=== PATIENT | male | born 1970 | race Caucasian/White ===

== ENCOUNTER → 2024-12-28 07:37 | Outpatient (REF) | payer OTHER, SELFPAY ==
--- NOTE | 2024-12-28 07:43 | ECG_ITS ---
Test Reason : check qt Blood Pressure : */* mmHG Vent. Rate : 79 BPM Atrial Rate : 79 BPM P-R Int : 168 ms QRS Dur : 94 ms QT Int : 380 ms P-R-T Axes : 46 46 62 degrees QTcB Int : 435 ms Normal sinus rhythm Normal ECG No previous ECGs available Referred By: Tara Ramirez Electronically Signed By: SHALONDA PALOMINO
[2024-12-28 07:57] LABS: MANUAL DIFF FLAG NO
[2024-12-28 08:24] LABS: Hematocrit 46.3 % (42.0-52.0); Hemoglobin 15.0 g/dl (14.0-18.0); Imm Gran Abs Auto 0.01 X10*3/uL (0.00-0.03); Imm Gran Pct Auto 0.2 % (0.0-0.4); Lymphocytes Absolute Auto 1.2 X10*3/uL (1.2-4.9); Mean Corpuscular HGB Conc 32.4 g/dl (31.0-36.0); Mean Corpuscular Hemoglobin 28.8 pg (27.0-33.0); Mean Corpuscular Volume 88.9 fL (80.0-98.0); NRBC Abs Auto 0.000 X10*3/uL (0.0-0.012); NRBC Pct Auto 0.0 /100WBC (0.0-0.2); Platelet Count 282 X10*3/uL (160-400); Red Blood Count 5.21 X10*6/uL (4.60-5.80); White Blood Count 5.6 X10*3/uL (4.8-10.8)
[2024-12-28 08:26] LABS: Hemoglobin A1C 151.3397 umol/L; Total Hemoglobin (HGBA1C) 4070.7835 umol/L
[2024-12-28 08:43] LABS: Alanine Aminotransferase 34 U/L (0-40); Albumin Level 4.6 g/dL (3.5-5.0); Alkaline Phosphatase 69 U/L (39-117); Anion Gap 14 (12-20); Aspartate Amino Transferase 27 U/L (5-37); Blood Urea Nitrogen 15 mg/dL (9-16); Calcium 9.7 mg/dL (8.4-10.2); Carbon Dioxide 29 mmol/L (22-29); Chloride 103 mmol/L (96-108); Cholesterol 245 mg/dL (<200); Estimated Glomerular Filt Rate > 60; HDL Cholesterol 66 mg/dL (>40); Iron 88 mcg/dL (45-160); Magnesium 2.4 mg/dL (1.6-2.6); Percent Iron Saturation 30 % (15-50); Potassium 4.7 mmol/L (3.3-5.1); Sodium 141 mmol/L (135-145); Total Iron Binding Capacity 291 mcg/dL (228-428); Total Protein 7.1 g/dL (6.5-8.0); Triglycerides 122 mg/dL (<150); Unsaturated Iron Binding 203 ug/dL
[2024-12-28 09:00] LABS: Free T4 (Free Thyroxine) 0.91 ng/dL (0.71-1.85); Thyroid Stimulating Hormone 1.92 uIU/mL (0.32-4.0)
[2024-12-28 09:22] LABS: Folate 11.4 ng/mL (> or = 4.0); Vitamin B12 409 pg/mL (200-900)
== END ==
LOC: HO.CARD 07:37
PROVIDERS: PCP Internal Medicine; Visit Provider Psychiatry & Neurology Psychiatry
DX: F41.1 Generalized anxiety disorder (principal); F33.2 Major depressive disorder, recurrent severe without psychotic features
CPT/HCPCS: 36415; 80053; 80061; 82550; 82607; 82746; 83036; 83090; 83540; 83735; 84100; 84425; 84439; 84443; 85025; 85652; 93005

== ENCOUNTER → 2024-12-28 07:43 | Outpatient (BNV) | payer OTHER, SELFPAY | PROVIDERS: PCP Internal Medicine; Visit Provider Internal Medicine | DX: Z13.6 Encounter for screening for cardiovascular disorders (principal) | CPT/HCPCS: 93010 ==

== ENCOUNTER 2025-01-07 10:30 | Outpatient (RCR) | payer OTHER, SELFPAY ==
[2024-12-25 09:40] VITALS: BP 100/63; PULSE 84; TEMP 36.3; BMI 35.0
--- NOTE | 2024-12-25 10:14 | PC.ADMIT ---
Patient is a 54 year old male who was referred to [facility] by his psychiatrist Dr. Emilia Mondragon secondary to increased sxs of depression and anxiety in relation to work stresses. Patient reports he was put into a new position at work and believes he is not control of the situation or have the answers others are looking for. Patient is currently taking a ANDREE from work d/t mental health sxs. He wants to be able to learn to handle stress better. Patient reports he was on Escitalopram for years and this stopped working thus was tapered off this and put on Duloxetine. Patient reports he was also prescribed Propranolol however he was feeling lightheaded and chest pressure when on the medication thus was discontinued. Patient is alert and oriented x4. He is calm and cooperative. He presentd with depressed mood and anxious affect. He denied SI, no HI. He was given a copy of his safety plan if needed. Medication updated with patient and patient's pharmacy. He reports he is taking medications as prescribed. Patient reports he lost 30 lbs with in the past 2.5 months d/t stress and depression sxs. Patient reports having panic attacks and night and daytime sweating. Patient denied any issues with substance use.
--- NOTE | 2024-12-25 23:48 | HO.PS.ADMBH ---
HPI Date of Service: 12/25/24 Chief Complaint: anxiety,depression Sources of Information: patient interviewed, chart reviewed and crisis/core team assessment reviewed HPI Narrative: Patient is a 54 yo male with history of generalized anxiety, depression, who was referred by his outpatient psychiatrist for struggles with worsening anxiety, panic attacks and physical symptoms of anxiety, leading to impairments in focus and cognitive functioning which are negatively impacting his ability to function at his job. 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 Since a job promotion in the earlier part of the year, he has been struggling with his new role, particularly the social/interpersonal demands of the job: he has to coordinate and lead a team, I'm expected to have the answers . He complains of experiencing increased levels of anxiety, irritability, frequent panic attacks especially at night I lost my ability to focus... my memory has been compromised . He has also started to suffer pressure headaches from being under constant stress as well as stress-related dreams. Aside from the stressors of work, he is also experiencing overthinking, and more recently finds his mind goes blank when trying to do mental tasks . Catastrophizing about the future, worrying about lsoing his job and being unable to support his family. He denies any suicidal ideation or thoughts of giving up on life, but is feeling hopeless about his situation at work and is not feeling confident he will be able to regain his cognitive abilities and composure. Past Psychiatric History: No prior IPLOC, PHP, respite, detox/rehab admissions SA: denies SIB: denies Aggression or antisocial behaviors: denies Denies legal history Pertinent developmental hx: none Previous diagnoses: BHAVESH, Depression Psychiatrist: Emilia Almanzar MD x 2 months Therapist: PCP: Previous trials: Lexapro (x 20 yrs, has been off x 1 week), trazodone CURRENT MEDICATIONS: duloxetine 60 mg qd (started about 2-3 weeks ago) buspirone 30 mg BID (x7 yrs) lorazepam 0.5 mg TID prn anxiety trazodone 50 mg qhs famotidine 20 mg BID [facility] Medical History (Updated 12/26/24 @ 09:55 by Tara Ramirez MD) GERD (gastroesophageal reflux disease) Narrative: Overall healthy No chronic health conditions No h/o medical hospitalization for illness or injury Surgeries: denies Seizures: denies Concussions/TBI: denies Ht: Wt: ALL: Diagnostics Vital Signs (24Hr): Vital Signs - 24 hr 12/25/24 09:40 Temperature 97.4 F Pulse Rate 84 Blood Pressure 100/63 BMI result Body Mass Index 35.0 Meds/Allergies Meds Home Medications ?Medication ?Instructions ?Recorded ?Confirmed ?Type buspirone 30 mg tablet 30 mg PO BID 12/25/24 12/25/24 History duloxetine 30 mg capsule,delayed 60 mg PO DAILY 12/25/24 12/25/24 History release famotidine 20 mg tablet 20 mg PO BID 12/25/24 12/25/24 History lorazepam 0.5 mg tablet 0.5 mg PO TID PRN anxiety 12/25/24 12/25/24 History trazodone 50 mg tablet 50 - 150 mg PO BEDTIME PRN insomnia 12/25/24 12/25/24 History Allergies Allergies Allergy/AdvReac Type Severity Reaction Status Date / Time propranolol AdvReac Lightheaded, Verified 12/25/24 10:14 chest pressure. Mental Status Exam Mental Status Exam Narrative: Alert, oriented, in no acute distress. Calm, cooperative, engaged. No psychomotor agitation or neurovegetative retardation. Eye contact maintained. Mood anxious, affect variable, mood congruent. Speech normal. Thought process linear, coherent. Thought content related to stressors, denies any hopelessness or SI. Denies any aggressive ideation or HI. No paranoia or delusional content elicited. No evidence of psychosis. Insight and judgment - fair but adequate. Assessment & Plan Assessment & Plan (1) MDD (major depressive disorder), recurrent severe, without psychosis: Status: Acute Code(s): F33.2 - Major depressive disorder, recurrent severe without psychotic features (2) BHAVESH (generalized anxiety disorder): Status: Acute Code(s): F41.1 - Generalized anxiety disorder Plan Admit to [facility] VS reviewed: afebrile, BP 100/63;?84 bpm continue regular medications for now will order Vyvanse to see if covered by insurance we are also considering starting guanfacine ER Routine lab work as indicated EKG, routine for baseline QTc for medication considerations as indicated UDS as indicated MassPat reviewed Continue to monitor as per protocol Patient educated on: diagnosis and medication risk/benefits Informed Consent: understands Reason for continued partial hosp. stay Substantial Risk for: inability to function and med/psych decompensation Certification I certify that partial hospital treatment is medically necessary due to the symptoms and problems resulting from the patient's mental illness and the failure to treat the patient at the partial hospital level of care would likely result in the patient requiring inpatient psychiatric care which could not be prevented at a less intensive level of care. Time Spent With Patient Time: Total time managing care of this patient today __60__ minutes.
--- NOTE | 2024-12-27 14:31 | HO.PHP ---
PHP staff member spoke with [employer] for [employer] disability claims due to her needing information on his duration of program and treatment goals.
--- NOTE | 2024-12-27 16:13 | HO.PHP ---
Clients case was open and reviewed in teams.
--- NOTE | 2024-12-31 22:40 | HO.PHPPROGNO ---
Subjective Subjective Date of Service: 12/31/24 Reason For Visit: anxiety,depression Interim History: Patient seen for follow-up. No changes in presentation. Anxiety still main issues, preoccupies with concerns about returning to work. Has been in contact with his employer they are saying I have to return to work on 01/14. He has not been able to start on the medication because Vyvanse requiring a prior authorization. We reviewed other options, including switching to IR [facility] whihc may be on formulary. Also considering Abilify or low dose prn risperidone for obsessive-type anxious rumination, patient says he will take these options under consideration. FEels mood is negatively impacted by the anxiety, although if not for anxiety he feels he would not feel depressed. DEscribes existential angst, feelings of helplessness, hopelessness (pertaining to work and ability to maintain employment) denies SI. Medication Compliance: Yes Side effects from medications: No Attending Groups: Yes Review of Systems Acute medical concerns: No Mental Status Exam Mental Status Exam Narrative: Alert, oriented, in no acute distress. Calm, cooperative, engaged. No psychomotor agitation or neurovegetative retardation. Eye contact maintained. Mood anxious, affect variable, mood congruent. Speech normal. Thought process linear, coherent. Thought content related to stressors, denies any hopelessness or SI. Denies any aggressive ideation or HI. No paranoia or delusional content elicited. No evidence of psychosis. Insight and judgment - fair but adequate. Diagnostics Vital Signs (24Hr): BMI result Body Mass Index 35.0 Assessment & Plan Assessment & Plan (1) MDD (major depressive disorder), recurrent severe, without psychosis: Status: Acute Code(s): F33.2 - Major depressive disorder, recurrent severe without psychotic features (2) BHAVESH (generalized anxiety disorder): Status: Acute Code(s): F41.1 - Generalized anxiety disorder Plan continue PHP VS reviewed: afebrile, BP 100/63;?84 bpm continue regular medications for now pending PA approval for Vyvanse we are also considering starting guanfacine ER, Abilify Routine lab work as indicated EKG, routine for baseline QTc for medication considerations as indicated UDS as indicated MassPat reviewed Continue to monitor Patient educated on: diagnosis and medication risk/benefits Informed Consent: understands Reason for contiued partial hosp. stay Substantial Risk for: inability to function and med/psych decompensation Certification I certify that partial hospital treatment is medically necessary due to the symptoms and problems resulting from the patient's mental illness and the failure to treat the patient at the partial hospital level of care would likely result in the patient requiring inpatient psychiatric care which could not be prevented at a less intensive level of care. Total time managing care of this patient today _30___ minutes. Discharge Plan Discharge Attending provider: Tara Ramirez Medications: New methylphenidate HCl 5 mg tablet 5 mg PO BID Qty: 30 0RF Rx Instructions: Partial Fill upon patient request. Continued trazodone 50 mg tablet 50 - 150 mg PO BEDTIME PRN (Reason: insomnia) famotidine 20 mg tablet 20 mg PO BID Rx Instructions: Patient stated he takes daily. lorazepam 0.5 mg tablet 0.5 mg PO TID PRN (Reason: anxiety) buspirone 30 mg tablet 30 mg PO BID Changed duloxetine 30 mg capsule,delayed release(DR/EC) 30 mg PO BID Qty: 30 0RF Rx Instructions: TAKE ONE CAPSULE BY MOUTH DAILY FOR ONE WEEK, AND THEN INCREASE TO TWO CAPSULES BY MOUTH DAILY No Action aripiprazole 5 mg tablet 5 mg PO DAILY Qty: 20 0RF aripiprazole 2 mg tablet 2 mg PO BEDTIME Qty: 20 0RF guanfacine 1 mg tablet extended release 24 hr 1 mg PO DAILY Qty: 30 0RF Stand Alone Forms: Patient Portal Discharge page Patient Education: Anxiety (ED) Print Language: [place]
[2025-01-04 14:06] VITALS: BP 114/68; PULSE 80
--- NOTE | 2025-01-04 14:21 | HO.PHPPROGNO ---
Subjective Subjective Date of Service: 01/04/25 Reason For Visit: anxiety,depression Interim History: Reports not making much progress. Feeling paralyzed with anxiety regarding return to work. Not feeling confident about potential return, complains mind going blank still especially around tasks that remind him of his job. Having difficulties with focus, my focus is the big issue... just a complete inability to get any work done . Facing a lot of uncertainty about his future. He has been contemplating his ability to work and wondering if he in fact will be unable to work any longer. Great sense of dread if he would be unable to support his family. He has been splitting the Cymbalta into 30 mg BID which has only partially mitigated the headaches. Medication Compliance: Yes Side effects from medications: No Attending Groups: Yes Review of Systems Acute medical concerns: No Mental Status Exam Mental Status Exam Narrative: Alert, oriented, in no acute distress. Calm, cooperative, engaged. No psychomotor agitation or neurovegetative retardation. Eye contact maintained. Mood anxious, affect variable, mood congruent. Speech normal. Thought process linear, coherent. Thought content related to stressors, denies any hopelessness or SI. Denies any aggressive ideation or HI. No paranoia or delusional content elicited. No evidence of psychosis. Insight and judgment - fair but adequate. Diagnostics Vital Signs (24Hr): BMI result Body Mass Index 35.0 Assessment & Plan Assessment & Plan (1) MDD (major depressive disorder), recurrent severe, without psychosis: Status: Acute Code(s): F33.2 - Major depressive disorder, recurrent severe without psychotic features (2) BHAVESH (generalized anxiety disorder): Status: Acute Code(s): F41.1 - Generalized anxiety disorder Plan Continue PHP continue regular medications for now LA stimulants requiring PA will start Ritalin 2.5- 5 mg qam start guanfacine ER 1 mg qam start Abilify 1 mg qhs Routine lab work findings and EKG, routine findings pending UDS as indicated VS reviewed: afebrile, BP 100/63;?84 bpm Continue to monitor as per protocol Patient educated on: diagnosis and medication risk/benefits Informed Consent: understands Reason for contiued partial hosp. stay Substantial Risk for: inability to function and med/psych decompensation Certification I certify that partial hospital treatment is medically necessary due to the symptoms and problems resulting from the patient's mental illness and the failure to treat the patient at the partial hospital level of care would likely result in the patient requiring inpatient psychiatric care which could not be prevented at a less intensive level of care. Total time managing care of this patient today __30__ minutes. Discharge Plan Discharge Attending provider: Tara Ramirez Medications: New lisdexamfetamine 10 mg capsule 10 mg PO QAM Qty: 30 0RF Rx Instructions: Partial Fill upon patient request. methylphenidate HCl 5 mg tablet 5 mg PO BID Qty: 30 0RF Rx Instructions: Partial Fill upon patient request. guanfacine 1 mg tablet extended release 24 hr 1 mg PO DAILY Qty: 20 0RF aripiprazole 2 mg tablet 2 mg PO BEDTIME Qty: 20 0RF No Action trazodone 50 mg tablet 50 - 150 mg PO BEDTIME PRN (Reason: insomnia) famotidine 20 mg tablet 20 mg PO BID Rx Instructions: Patient stated he takes daily. lorazepam 0.5 mg tablet 0.5 mg PO TID PRN (Reason: anxiety) buspirone 30 mg tablet 30 mg PO BID duloxetine 30 mg capsule,delayed release(DR/EC) 60 mg PO DAILY Rx Instructions: TAKE ONE CAPSULE BY MOUTH DAILY FOR ONE WEEK, AND THEN INCREASE TO TWO CAPSULES BY MOUTH DAILY Stand Alone Forms: Patient Portal Discharge page Print Language: Vietnamese
--- NOTE | 2025-01-07 19:40 | HO.PHPPROGNO ---
Subjective Subjective Date of Service: 01/07/25 Reason For Visit: anxiety,depression Interim History: Patient seen for follow-up, anticipating discharge at the end of program today.? BP today 114/68 with pulse 80. Guanfacine not well-tolerated. Patient feels he isnt tolerating guanfacine well, causing a weird feeling in chest, like a tension . Otherwise tolerated medications. Reports no acute issues or concerns. Medication compliant, medications well-tolerated. Denies any adverse effects.? Still having persistent issues with anxiety. He is open to returning to [facility] to continue treatment. Mood is stable.? Denies any hopelessness or SI. Denies thoughts of harming self or others at this time. Denies any aggressive ideation or HI. Denies any paranoia or AH or VH. Sleep, appetite, energy stable. Medication Compliance: Yes Side effects from medications: No Attending Groups: Yes Review of Systems Acute medical concerns: No Mental Status Exam Mental Status Exam Narrative: Alert, oriented, in no acute distress. Calm, cooperative, engaged. No psychomotor agitation or neurovegetative retardation. Eye contact maintained. Mood anxious, affect variable, mood congruent. Speech normal. Thought process linear, coherent. Thought content related to stressors, denies any hopelessness or SI. Denies any aggressive ideation or HI. No paranoia or delusional content elicited. No evidence of psychosis. Insight and judgment - fair but adequate. Diagnostics Vital Signs (24Hr): BMI result Body Mass Index 35.0 Assessment & Plan Assessment & Plan (1) MDD (major depressive disorder), recurrent severe, without psychosis: Status: Acute Code(s): F33.2 - Major depressive disorder, recurrent severe without psychotic features (2) BHAVESH (generalized anxiety disorder): Status: Acute Code(s): F41.1 - Generalized anxiety disorder Plan Discharge from [facility] continue regular medications except guanfacine continue Ritalin 2.5- 5 mg qam discontinue guanfacine ER 1 mg qam continue Abilify 2 mg qhs Continue regular medications? Refills sent to pharmacy Will defer further medication management to outpatient provider *Safety plan reviewed *Discharge diagnoses, treatment course, discharge plan have been reviewed with patient (including medication regime, medication management, potential side effects) as well as treatment rationale were also revisited *Discharge paperwork signed and given to patient, copy sent for scanning to chart Patient educated on: diagnosis and medication risk/benefits Informed Consent: understands Reason for contiued partial hosp. stay Substantial Risk for: stable for discharge Certification I certify that partial hospital treatment is medically necessary due to the symptoms and problems resulting from the patient's mental illness and the failure to treat the patient at the partial hospital level of care would likely result in the patient requiring inpatient psychiatric care which could not be prevented at a less intensive level of care. Total time managing care of this patient today __30__ minutes. Discharge Plan Discharge Attending provider: Tara Ramirez Medications: New methylphenidate HCl 5 mg tablet 5 mg PO BID Qty: 30 0RF Rx Instructions: Partial Fill upon patient request. guanfacine 1 mg tablet extended release 24 hr 1 mg PO DAILY Qty: 20 0RF aripiprazole 2 mg tablet 2 mg PO BEDTIME Qty: 20 0RF Continued trazodone 50 mg tablet 50 - 150 mg PO BEDTIME PRN (Reason: insomnia) famotidine 20 mg tablet 20 mg PO BID Rx Instructions: Patient stated he takes daily. lorazepam 0.5 mg tablet 0.5 mg PO TID PRN (Reason: anxiety) buspirone 30 mg tablet 30 mg PO BID Changed duloxetine 30 mg capsule,delayed release(DR/EC) 30 mg PO BID Qty: 30 0RF Rx Instructions: TAKE ONE CAPSULE BY MOUTH DAILY FOR ONE WEEK, AND THEN INCREASE TO TWO CAPSULES BY MOUTH DAILY Stand Alone Forms: Patient Portal Discharge page Patient Education: Anxiety (ED) Print Language: Bel[place]ian
== END 2025-01-07 23:59 | disposition home or self-care (01) ==
LOC: HO.PHPA 10:30
PROVIDERS: Visit Provider Psychiatry & Neurology Psychiatry
DX: F33.2 Major depressive disorder, recurrent severe without psychotic features (principal); F41.1 Generalized anxiety disorder; Z79.899 Other long term (current) drug therapy
CPT/HCPCS: 90791; 90853

== ENCOUNTER → 2025-01-25 09:45 | Outpatient (BNV) | payer OTHER, SELFPAY | PROVIDERS: Visit Provider Psychiatry & Neurology Psychiatry | DX: F41.1 Generalized anxiety disorder (principal); F33.2 Major depressive disorder, recurrent severe without psychotic features | CPT/HCPCS: 90792 ==

== ENCOUNTER 2025-01-29 09:45 | Outpatient (RCR) | payer OTHER, SELFPAY ==
[2025-01-24 10:51] VITALS: BMI 34.7
[2025-01-24 13:51] VITALS: BP 110/80; PULSE 84; TEMP 36.4
--- NOTE | 2025-01-24 15:06 | PC.ADMIT ---
Patient is a 54 year old male who was attending [facility] level of care and was discharged from [facility] on 01/07/25. Patient is stepping down to [facility] level of care as he is continuing to struggle with anxiety sxs. Patient is currently on a ANDREE from work d/t symptoms and reports history of having a panic attack while at work. Patient has taken on a new position at work which has increased his anxiety. Patient is alert and oriented x4. He is calm and cooperative. He presented with anxious mood and affect. He denied SI, no HI. He was given a copy of his safety plan if needed. Medications updated with patient and patient's discharge medication list from [facility]. Patient reports there were no medication changes since discharge from [facility]. Patient reports he is taking medications as prescribed. Patient denied having any issues with substance use.
--- NOTE | 2025-01-24 15:52 | HO.PHP ---
Client was reviewed and opened in teams.
--- NOTE | 2025-01-25 13:07 | HO.PS.ADMBH ---
HPI Date of Service: 01/25/25 Chief Complaint: depression,anxiety Sources of Information: patient interviewed, chart reviewed and crisis/core team assessment reviewed HPI Narrative: Patient is a 54 yo male with history of generalized anxiety, depression, who is returning to [facility] after completing PHP. He was initially referred by his outpatient psychiatrist for struggles with worsening anxiety, panic attacks and physical symptoms of anxiety, leading to impairments in focus and cognitive functioning which are negatively impacting his ability to function at his job. He works as a sales product manager at the [employer] and is concerned about returning to work next Sunday 02/04, he is scheduled for a follow-up with his provider tomorrow with Dr. Emilia Almanzar to make that determination. He has continued on Abilifya at 2 mg, he sispects it is helping perhaps a little because he is able to tolerate checking emails and other work-related tasks. He denies any substance use. Denies any hopelessness or SI. He is agreeable to restarting the trial of stimulant and guanfacine. Past Psychiatric History: No prior IPLOC, respite, detox/rehab admissions [place] x1 in 12/2024 [place] [facility] [place]: denies SIB: denies Aggression or antisocial behaviors: denies Denies legal history Pertinent developmental hx: none Previous diagnoses: BHAVESH, Depression Psychiatrist: Emilia Almanzar MD x 2 months Therapist: PCP: Previous trials: Lexapro (x 20 yrs, has been off x 1 week), trazodone CURRENT MEDICATIONS: ABilify 2 mg qd duloxetine 60 mg qd (started about 2-3 weeks ago) buspirone 30 mg BID (x7 yrs) lorazepam 0.5 mg TID prn anxiety (usually takes once a day, sometimes 1 or 2) trazodone 50 mg qhs famotidine 20 mg BID (have been holding guanfacine ER and MPH) [facility] Medical History (Updated 12/26/24 @ 09:55 by Tara Ramirez MD) GERD (gastroesophageal reflux disease) Narrative: Overall healthy No chronic health conditions No h/o medical hospitalization for illness or injury Surgeries: denies Seizures: denies Concussions/TBI: denies Ht: Wt: ALL: Diagnostics Vital Signs (24Hr): BMI result Body Mass Index 34.7 Meds/Allergies Meds Home Medications ?Medication ?Instructions ?Recorded ?Confirmed ?Type buspirone 30 mg tablet 30 mg PO BID 12/25/24 01/24/25 History famotidine 20 mg tablet 20 mg PO BID 12/25/24 01/24/25 History lorazepam 0.5 mg tablet 0.5 mg PO TID PRN anxiety 12/25/24 01/24/25 History trazodone 50 mg tablet 50 - 150 mg PO BEDTIME PRN insomnia 12/25/24 01/24/25 History Allergies Allergies Allergy/AdvReac Type Severity Reaction Status Date / Time propranolol AdvReac Lightheaded, Verified 12/25/24 10:14 chest pressure. Mental Status Exam Mental Status Exam Narrative: Alert, oriented, in no acute distress. Calm, cooperative, engaged. No psychomotor agitation or neurovegetative retardation. Eye contact maintained. Mood anxious, affect variable, mood congruent. Speech normal. Thought process linear, coherent. Thought content related to stressors, denies any hopelessness or SI. Denies any aggressive ideation or HI. No paranoia or delusional content elicited. No evidence of psychosis. Insight and judgment - fair but adequate. Assessment & Plan Assessment & Plan (1) BHAVESH (generalized anxiety disorder): Status: Acute Code(s): F41.1 - Generalized anxiety disorder (2) MDD (major depressive disorder), recurrent severe, without psychosis: Status: Acute Code(s): F33.2 - Major depressive disorder, recurrent severe without psychotic features Plan Admit to IOP VS reviewed: afebrile, BP 110/80;?84 bpm increase ABilify to 3.5 mg daily restart MPH 2.5 mg qd restart guanfacine ER 1mg BID utililize 0.5 mg qd prn anxiety continue regular medications for now Routine lab work as indicated EKG, routine for baseline QTc for medication considerations as indicated UDS as indicated MassPat reviewed Continue to monitor as per protocol I certify that the patient needs IOP Services for a minimum of 9 hours per week of therapeutic services. I certify the patient is experiencing symptoms of such intensity that they are unable to be safely treated in a less intensive setting and would otherwise require admission to a more intensive level of care. Patient educated on: diagnosis and medication risk/benefits Informed Consent: understands Reason for continued partial hosp. stay Substantial Risk for: inability to function and med/psych decompensation Certification I certify that the patient needs IOP Services for a minimum of 9 hours per week of therapeutic services. I certify the patient is experiencing symptoms of such intensity that they are unable to be safely treated in a less intensive setting and would otherwise require admission to a more intensive level of care. Time Spent With Patient Time: Total time managing care of this patient today __60__ minutes.
--- NOTE | 2025-01-29 16:02 | HO.PHPPROGNO ---
Subjective Subjective Date of Service: 01/29/25 Reason For Visit: depression,anxiety Interim History: Patient seen for follow-up, anticipating discharge at the end of program today. ? He is on 3rd day of trialing stimulant/guanfacine combo. Appears to be tolerating better now. He is still not sure if this will be helpful at work focus/attention better managing anxiety, maykel has been able to attend to work emails without getting as overwhelmed as he did before PHP. Feels the Abilify has been managing a lot of the irrational thought patterns. Remains very focused on return to work, not feeling assured that he will be able to manage task. Reports no acute issues or concerns. Medication compliant, medications well-tolerated. Denies any adverse effects.? Mood is stable.? Denies any hopelessness or SI. Denies thoughts of harming self or others at this time. Denies any aggressive ideation or HI. Denies any paranoia or AH or VH. Sleep, appetite, energy stable. Alert, oriented, in no acute distress. Calm, cooperative. Mood stable, affect appropriate. Speech normal. Thought process linear, coherent, more goal-directed. Thought content related to stressors, future-oriented, denies any helplessness, hopelessness or SI.? No aggressive ideation or HI. No paranoia or delusional content elicited. No evidence of psychosis. Insight and judgment fair-good. Medication Compliance: Yes Side effects from medications: No Attending Groups: Yes Review of Systems Acute medical concerns: No Mental Status Exam Mental Status Exam Narrative: Alert, oriented, in no acute distress. Calm, cooperative, engaged. No psychomotor agitation or neurovegetative retardation. Eye contact maintained. Mood anxious, affect variable, mood congruent. Speech normal. Thought process linear, coherent. Thought content related to stressors, denies any hopelessness or SI. Denies any aggressive ideation or HI. No paranoia or delusional content elicited. No evidence of psychosis. Insight and judgment - fair but adequate. Diagnostics Vital Signs (24Hr): BMI result Body Mass Index 34.7 Assessment & Plan Assessment & Plan (1) BHAVESH (generalized anxiety disorder): Status: Acute Code(s): F41.1 - Generalized anxiety disorder (2) MDD (major depressive disorder), recurrent severe, without psychosis: Status: Acute Code(s): F33.2 - Major depressive disorder, recurrent severe without psychotic features Plan Discharge from IOP VS reviewed: afebrile, BP 110/80;?84 bpm continue ABilify 3.5 mg daily continue MPH 2.5 mg qd-bid continue guanfacine ER 1mg qd-BID continue lorazepam 0.5 mg qd prn anxiety continue regular medications: including buspirone 30 mg BID, duloxetine 30 mg BID, Routine lab work as indicated EKG, routine for baseline QTc for medication considerations as indicated UDS as indicated MassPat reviewed Continue to monitor as per protocol I certify that the patient needs IOP Services for a minimum of 9 hours per week of therapeutic services. I certify the patient is experiencing symptoms of such intensity that they are unable to be safely treated in a less intensive setting and would otherwise require admission to a more intensive level of care. Patient educated on: diagnosis and medication risk/benefits Reason for contiued partial hosp. stay Substantial Risk for: stable for discharge Certification I certify that the patient needs IOP Services for a minimum of 9 hours per week of therapeutic services. I certify the patient is experiencing symptoms of such intensity that they are unable to be safely treated in a less intensive setting and would otherwise require admission to a more intensive level of care. Total time managing care of this patient today __30__ minutes. Discharge Plan Discharge Attending provider: Tara Ramirez Medications: New aripiprazole 5 mg tablet 5 mg PO DAILY Qty: 20 0RF Continued trazodone 50 mg tablet 50 - 150 mg PO BEDTIME PRN (Reason: insomnia) famotidine 20 mg tablet 20 mg PO BID Rx Instructions: Patient stated he takes daily. lorazepam 0.5 mg tablet 0.5 mg PO TID PRN (Reason: anxiety) buspirone 30 mg tablet 30 mg PO BID methylphenidate HCl 5 mg tablet 5 mg PO BID Qty: 30 0RF Rx Instructions: Partial Fill upon patient request. duloxetine 30 mg capsule,delayed release(DR/EC) 30 mg PO BID Qty: 30 0RF Rx Instructions: TAKE ONE CAPSULE BY MOUTH DAILY FOR ONE WEEK, AND THEN INCREASE TO TWO CAPSULES BY MOUTH DAILY aripiprazole 2 mg tablet 2 mg PO BEDTIME Qty: 20 0RF guanfacine 1 mg tablet extended release 24 hr 1 mg PO DAILY Qty: 30 0RF Stand Alone Forms: Patient Portal Discharge page Patient Education: Anxiety (ED), Anxiety (GEN) Print Language: Mauritanian
== END 2025-01-29 23:59 | disposition home or self-care (01) ==
LOC: HO.IOP 09:45
PROVIDERS: Visit Provider Psychiatry & Neurology Psychiatry
DX: F41.1 Generalized anxiety disorder (principal); F33.2 Major depressive disorder, recurrent severe without psychotic features; Z79.899 Other long term (current) drug therapy
CPT/HCPCS: 90791; S9480